=== PATIENT | female | born 1970 | race Asian ===

== ENCOUNTER → 2020-01-22 | Outpatient (REF) | END | disposition home or self-care (01) | LOC: ED 07:43 | DX: Z00.00 Encounter for general adult medical examination without abnormal findings (principal) ==

== ENCOUNTER 2020-03-17 04:17 | Emergency (ER) | payer SELFPAY ==
[~2020-03-17] VITALS: Ht 154.9 cm; Wt 78.0 kg
[2020-03-17 04:18] VITALS: Ht 154.9 cm; Wt 78.0 kg
[2020-03-17 06:46] VITALS: BP 126/76
== END 2020-03-17 06:46 | disposition home or self-care (01) ==
LOC: ED 04:17
DX: S90.32XA Contusion of left foot, initial encounter (principal); M25.572 Pain in left ankle and joints of left foot; X58.XXXA Exposure to other specified factors, initial encounter; Y93.89 Activity, other specified; Y92.89 Other specified places as the place of occurrence of the external cause; Y99.8 Other external cause status
CPT/HCPCS: Q0092

== ENCOUNTER → 2020-08-01 | Outpatient (CLI) | payer OTHER ==
[2020-08-01 12:49] LABS: BASOPHIL % 0.7 % (0-2); PLATELET COUNT 263 x10^3mcL (130-400); RED CELL DISTRIBUTION WIDTH 14.4 % (11.5-14.5)
[2020-08-01 13:02] LABS: ALKALINE PHOSPHATASE 51 U/L (46-116); ALT/SGPT 60 U/L (14-59); AST/SGOT 23 U/L (15-37); BILIRUBIN TOTAL 0.6 mg/dL (0.20-1.00); CALCIUM 9.1 mg/dL (8.5-10.1); CARBON DIOXIDE 30.3 mmol/L (21-32); CHLORIDE SERUM 107 mmol/L (98-107); CREATININE SERUM 0.9 mg/dL (0.6-1.0); GFR1 > 60 mL/min; GLUCOSE SERUM 99 mg/dL (74-106); HDL CHOLESTEROL 35 mg/dL (40-60); POTASSIUM SERUM 4.9 mmol/L (3.5-5.1); SODIUM SERUM 142 mmol/L (136-145); TOTAL PROTEIN, SERUM 7.6 g/dL (6.4-8.2)
[2020-08-01 13:10] LABS: CHOLESTEROL 225 mg/dL (<200); CHOLESTEROL/HDL RATIO 6.4; TRIGLYCERIDES 204 mg/dL (<150)
== END | disposition home or self-care (01) ==
LOC: LB 11:40
PROVIDERS: ATTEND Internal Medicine
DX: Z00.00 Encounter for general adult medical examination without abnormal findings (principal)
CPT/HCPCS: 86480

== ENCOUNTER → 2020-08-15 | Outpatient (CLI) | payer OTHER | END | disposition home or self-care (01) | LOC: LB 15:22 | PROVIDERS: ATTEND Internal Medicine | DX: Z00.00 Encounter for general adult medical examination without abnormal findings (principal) | CPT/HCPCS: 86480 ==

== ENCOUNTER → 2020-09-06 | Outpatient (CLI) | payer OTHER | END | disposition home or self-care (01) | LOC: LB 15:38 | PROVIDERS: ATTEND Internal Medicine | DX: R74.01 Elevation of levels of liver transaminase levels (principal) ==